=== PATIENT | male | born 1980 | race Caucasian/White ===

== ENCOUNTER 2017-04-22 16:13 | Emergency (ER) | payer OTHER ==
[~2017-04-22] VITALS: Ht 185.4 cm; Wt 115.7 kg
[~2017-04-22 16:13] MED LIST: COZAAR25 MG PO; DOXYCYCLINE100 M3 PO; DURICEF500 MG PO; HYDROCODONE BIT1 T11 PO; LISINOPRIL10 M1 PO; LISINOPRIL2.5 MG PO; NKHM; NORCO 325 MG-51 TAB PO; PERCOCET 325 MG1 TA6 PO; PERCOCET 325 MG1 TA7 PO; PREDNISONE10 MG PO; PROZAC10 MG PO; ROBITUSSIN AC 110 ML PO; SEROQUEL100 MG PO; TESSALON PERLE100 M1 PO; VENTOLIN H0.09 MG/AC INH; VICODIN 5/500 505 MG PO
[2017-04-22] MEDS ORDERED: Motrin,Rufen800 MG PO (18:18)
[2017-04-22] MEDS ORDERED: CYCLOBENZAPRINE5 M3 PO (18:18)
== END 2017-04-22 18:33 | disposition home or self-care (01) ==
LOC: ED 16:13
DX: M54.5 Low back pain (principal); F17.200 Nicotine dependence, unspecified, uncomplicated; Z88.4 Allergy status to anesthetic agent

== ENCOUNTER 2018-03-20 18:04 | Inpatient (IN) | payer OTHER ==
[~2018-03-20] VITALS: Ht 182.8 cm; Wt 118.8 kg
[2018-03-20] VITALS (8 sets, daily range): BP systolic 98–146; BP diastolic 54–94
--- NOTE | ~2018-03-20 | EKG ---
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
--- NOTE | ~2018-03-20 | EKG ---
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
--- NOTE | ~2018-03-20 | EKG ---
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 Electronically Signed On 03-21-2018 10:45:41 PDT by Terrance Headley MD CM:EKGRPT:ELECTROCARDIOGRAM REPORT 24 1045 GEORGETTE SAL DRAFT REPORT GEORGETTE MLALORY M.D.
--- NOTE | ~2018-03-20 | EKG ---
[place], [place] ELECTROCARDIOGRAM REPORT NAME: PABLO VÁZQUEZ JR UNIT #: [id number] ROOM: 512 DOCTOR: DORON DRAFT REPORT BIRTHDATE: [birth year] 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
[~2018-03-20 18:04] MED LIST changes: +CYCLOBENZAPRINE5 M3 PO; +Motrin,Rufen800 MG PO
[2018-03-20 18:23] LABS: HEMATOCRIT 50.5 % (42.0-52.0); HEMOGLOBIN 18.3 g/dl (14.0-18.0); MEAN CELL VOLUME 88.1 fl (80.0-94.0); MEAN CORPUSCULAR HGB 31.9 pg (27.0-31.0); MEAN CORPUSCULAR HGB CONC 36.2 g/dl (33.0-37.0); PLATELET COUNT AUTOMATED 250 10*3/uL (130-400); RED BLOOD COUNT 5.73 10*6/uL (4.50-5.90); RED CELL DISTRI WIDTH 12.5 % (0-14.5)
[2018-03-20 18:33] LABS: ACT PARTIAL THROMBO TIME 22.1 SECONDS (20.8-31.5); INTERNATIONAL NORM RATIO 0.9 (2.0-3.5)
[2018-03-20 18:44] LABS: ALBUMIN 4.8 gm/dl (3.1-4.5); ALKALINE PHOSPHATASE 83 U/L (45-117); BUN 10 mg/dl (7-24); CHLORIDE 103 mmol/L (98-107); POTASSIUM 3.4 mmol/L (3.5-5.1); SGOT/AST 50 IU/L (3-35); SGPT/ALT 92 U/L (12-78); SODIUM 138 mmol/L (136-145)
[2018-03-20 18:46] LABS: TROPONIN I < 0.015 ng/ml (<0.045)
[2018-03-20 18:54] LABS: ATYPICAL LYMPHS 1 % (0-0); PLATELET SUFFICIENCY NORMAL (NORMAL); TOTAL CELLS COUNTED 100 #CELLS
[2018-03-20 19:41] LABS: URINE AMPHETAMINES > 1000 (1000ng/ml); URINE BARBITURATES < 200 (200ng/ml); URINE BENZODIAZEPINES < 200 (200ng/ml); URINE CANNABINOIDS (THC) > 50 (50ng/ml); URINE COCAINE < 300 (300ng/ml); URINE METHADONE < 300 (300ng/ml); URINE OPIATES < 300 (300ng/ml)
[2018-03-20 19:45] LABS: URINE PHENCYCLIDINE < 25 (25ng/ml)
[2018-03-21] VITALS: BP 136/90
[2018-03-21 07:07] LABS: BASO # 0.1 10*3/uL (0.0-0.1); BASO % 0.8 % (0.0-1.0); EOS # 0.5 10*3/uL (0.0-0.4); EOS % 5.7 % (1.0-4.0); HEMATOCRIT 45.6 % (42.0-52.0); HEMOGLOBIN 16.3 g/dl (14.0-18.0); LYMPH # 3.5 10*3/uL (1.3-4.4); LYMPH % 41.9 % (27.0-41.0); MEAN CELL VOLUME 89.2 fl (80.0-94.0); MEAN CORPUSCULAR HGB 31.9 pg (27.0-31.0); MEAN CORPUSCULAR HGB CONC 35.7 g/dl (33.0-37.0); MONO # 0.9 10*3/uL (0.1-1.0); MONO % 10.2 % (3.0-9.0); NEUT # 3.4 10*3/uL (2.3-7.9); NEUT % 40.9 % (47.0-73.0); PLATELET COUNT AUTOMATED 179 10*3/uL (130-400); RED BLOOD COUNT 5.11 10*6/uL (4.50-5.90); RED CELL DISTRI WIDTH 12.6 % (0-14.5); WHITE BLOOD COUNT 8.4 10*3/uL (4.8-10.8)
[2018-03-21 07:26] LABS: CHLORIDE 105 mmol/L (98-107); POTASSIUM 3.7 mmol/L (3.5-5.1); SODIUM 139 mmol/L (136-145)
[2018-03-21 07:33] LABS: ALBUMIN 3.8 gm/dl (3.1-4.5); ALKALINE PHOSPHATASE 68 U/L (45-117); BUN 11 mg/dl (7-24); CHOLESTEROL 191 mg/dL (<200); CREATININE 0.81 mg/dL (0.70-1.30); FREE T4 0.91 ng/dl (0.76-1.46); HDL CHOLESTEROL 40 mg/dl (40-60); LDL CHOLESTEROL 113 mg/dL (9-159); PHOSPHOROUS 4.7 mg/dL (2.5-4.9); SGOT/AST 44 IU/L (3-35); SGPT/ALT 81 U/L (12-78); TOTAL PROTEIN 7.4 gm/dL (6.4-8.2); TRIGLYCERIDES 189 mg/dl (<150); VLDL CHOLESTEROL 38 mg/dL (6-40)
[2018-03-21 09:28] LABS: VITAMIN D, 25-HYDROXY 15.5 ng/mL (30-100)
== END 2018-03-21 08:05 | disposition left against medical advice (07) | DRG 310 ==
LOC: ED 18:04 → EDHOLD 20:05 → 5E 20:23
PROVIDERS: Emergency Medicine; Internal Medicine
DX: I47.1 Supraventricular tachycardia (principal); R55 Syncope and collapse; R00.2 Palpitations; F15.10 Other stimulant abuse, uncomplicated; R20.2 Paresthesia of skin; F12.10 Cannabis abuse, uncomplicated; D72.829 Elevated white blood cell count, unspecified; E87.6 Hypokalemia; R73.9 Hyperglycemia, unspecified; Z53.21 Procedure and treatment not carried out due to patient leaving prior to being seen by health care provider; E83.41 Hypermagnesemia; R74.0 Nonspecific elevation of levels of transaminase and lactic acid dehydrogenase [LDH]; F90.9 Attention-deficit hyperactivity disorder, unspecified type; I10 Essential (primary) hypertension; G89.29 Other chronic pain; M54.9 Dorsalgia, unspecified; F17.210 Nicotine dependence, cigarettes, uncomplicated; K04.7 Periapical abscess without sinus; E66.09 Other obesity due to excess calories; Z71.6 Tobacco abuse counseling; Z68.35 Body mass index [BMI] 35.0-35.9, adult; Z88.8 Allergy status to other drugs, medicaments and biological substances; Z83.3 Family history of diabetes mellitus; Z90.49 Acquired absence of other specified parts of digestive tract; Z98.1 Arthrodesis status; Z82.49 Family history of ischemic heart disease and other diseases of the circulatory system; Z88.6 Allergy status to analgesic agent

== ENCOUNTER 2019-03-16 15:52 | Emergency (ER) | payer OTHER ==
[~2019-03-16] VITALS: Ht 182.8 cm; Wt 120.2 kg
[2019-03-16] MEDS ORDERED: LISINOPRIL10 M1 PO (16:19)
== END 2019-03-16 16:25 | disposition home or self-care (01) ==
LOC: ED 15:52
DX: R06.02 Shortness of breath (principal); R25.1 Tremor, unspecified; R07.0 Pain in throat; T44.7X5A Adverse effect of beta-adrenoreceptor antagonists, initial encounter; I10 Essential (primary) hypertension; E66.9 Obesity, unspecified; F17.200 Nicotine dependence, unspecified, uncomplicated; Z88.6 Allergy status to analgesic agent; Y92.89 Other specified places as the place of occurrence of the external cause

== ENCOUNTER 2019-06-28 18:08 | Emergency (ER) | payer OTHER ==
[~2019-06-28] VITALS: Ht 185.4 cm; Wt 129.3 kg
[2019-06-28] MEDS ORDERED: CEFADROXIL500 M1 PO (19:25)
== END 2019-06-28 19:35 | disposition home or self-care (01) ==
LOC: ED 18:08
DX: S81.811A Laceration without foreign body, right lower leg, initial encounter (principal); I10 Essential (primary) hypertension; K21.9 Gastro-esophageal reflux disease without esophagitis; Z88.0 Allergy status to penicillin; Z79.899 Other long term (current) drug therapy; W26.8XXA Contact with other sharp object(s), not elsewhere classified, initial encounter; Y93.H2 Activity, gardening and landscaping; Y92.89 Other specified places as the place of occurrence of the external cause; Y99.8 Other external cause status

== ENCOUNTER → 2023-01-02 | Outpatient (CLI) | payer OTHER ==
[~2023-01-02] MED LIST changes: +CEFADROXIL500 M1 PO
[2023-01-02 10:11] LABS: ALKALINE PHOSPHATASE 76 U/L (46-116); BUN 10 mg/dl (9-23); CHLORIDE 107 mmol/L (98-107); POTASSIUM 3.9 mmol/L (3.4-5.1); SGPT/ALT 42 U/L (10-49); TOTAL PROTEIN 6.7 gm/dL (6.0-8.0)
== END | disposition home or self-care (01) ==
LOC: LAB 09:09
PROVIDERS: ATTEND Nurse Practitioner Primary Care
DX: N40.1 Benign prostatic hyperplasia with lower urinary tract symptoms (principal); E29.1 Testicular hypofunction

== ENCOUNTER 2023-05-15 21:34 | Emergency (ER) | payer OTHER ==
[~2023-05-15] VITALS: Ht 185.4 cm; Wt 135.2 kg
[2023-05-16] MEDS ORDERED: CEPHALEXIN500 M1 PO
== END 2023-05-16 00:15 | disposition home or self-care (01) ==
LOC: ED 21:34
DX: S61.412A Laceration without foreign body of left hand, initial encounter (principal); K21.9 Gastro-esophageal reflux disease without esophagitis; I10 Essential (primary) hypertension; F41.9 Anxiety disorder, unspecified; F32.A Depression, unspecified; Z88.6 Allergy status to analgesic agent; Z88.8 Allergy status to other drugs, medicaments and biological substances; Z90.49 Acquired absence of other specified parts of digestive tract; Z98.890 Other specified postprocedural states; F17.200 Nicotine dependence, unspecified, uncomplicated; F12.10 Cannabis abuse, uncomplicated; W31.89XA Contact with other specified machinery, initial encounter; Y93.89 Activity, other specified; Y92.009 Unspecified place in unspecified non-institutional (private) residence as the place of occurrence of the external cause; Y99.8 Other external cause status